=== PATIENT | female | born 2000 | race Caucasian/White ===

== ENCOUNTER 2022-05-13 21:34 | Emergency (ER) | payer MEDICAID ==
[2022-05-13] VITALS (8 sets, daily range): BP systolic 102–134; BP diastolic 35–83
[~2022-05-13] VITALS: Ht 139.7 cm; Wt 64.0 kg
[~2022-05-13 21:34] MED LIST: AMOXICILLI400 MG/5 M PO; AUGMENTIN400 MG OR; NO HOME MEDS; PEPTO BISMOL30 ML OR; TRIAMIN19 OR
[2022-05-13 22:23] LABS: HEMATOCRIT 36.5 % (37.0-47.0); HEMOGLOBIN 11.4 g/dl (12.0-16.0); IMMATURE GRANULOCYTES 0.1 % (0.0-5.0); MEAN CELL VOLUME 71.7 fL CALC (80.0-100.0); MEAN CORPUSCULAR HGB 22.4 pG CALC (26.0-32.0); MEAN CORPUSCULAR HGB CONC 31.2 g/dL CAL (32.0-36.0); RED BLOOD COUNT 5.09 mill/uL (4.20-5.60); RED CELL DISTRI WIDTH 14.8 % (11.5-15.5)
[2022-05-13 22:40] LABS: ALBUMIN 4.5 g/dL (3.2-5.0); ALKALINE PHOSPHATASE 89 u/l (38-126); ANION GAP 15 (6-22 (CALC)); BILIRUBIN, TOTAL 0.2 mg/dL (0.0-1.4); BUN 9 mg/dL (7-17); BUN/CREATININE RATIO 21 (12-20 (CALC)); CARBON DIOXIDE 26 mmol/l (22-30); CHLORIDE 101 mmol/l (95-108); CREATININE 0.5 mg/dL (0.5-1.0); GFR FOR AFR.AMER. > 60 ML/MIN (>=60 (CALC)); GFR OTHER RACES > 60 ML/MIN (>=60 (CALC)); POTASSIUM 3.7 mmol/l (3.5-5.1); SGOT/AST 26 u/l (14-36); SODIUM 139 mmol/l (137-146); TOTAL PROTEIN 8.1 g/dL (6.3-8.2)
[2022-05-13 23:08] LABS: URINE BILIRUBIN - DIPSTICK NEGATIVE (NEGATIVE); URINE BLOOD DIPSTICK NEGATIVE (NEGATIVE); URINE COLOR YELLOW; URINE GLUCOSE - DIPSTICK NEGATIVE (NEGATIVE); URINE KETONE NEGATIVE (NEGATIVE); URINE LEUK ESTERASE NEGATIVE (NEGATIVE); URINE NITRITE - DIPSTICK NEGATIVE (Negative); URINE PROTEIN - DIPSTICK NEGATIVE (NEG-TRACE); URINE SPECIFIC GRAVITY >=1.030; URINE UROBILINOGEN - DIPSTICK 0.2 E.U./dL (0.2)
[2022-05-14] VITALS (7 sets, daily range): BP systolic 103–119; BP diastolic 49–64
[2022-05-14] MEDS ORDERED: IBUPROFEN600 MG PO (01:04)
[2022-05-14] MEDS ORDERED: BACLOFEN20 MG PO (01:04)
== END 2022-05-14 01:30 | disposition home or self-care (01) ==
LOC: ED 21:34
PROVIDERS: Emergency Medicine
DX: R07.89 Other chest pain (principal); R10.9 Unspecified abdominal pain; J31.2 Chronic pharyngitis

== ENCOUNTER 2023-08-17 12:53 | Emergency (ER) | payer OTHER ==
[~2023-08-17] VITALS: Ht 139.7 cm; Wt 91.2 kg
[~2023-08-17 12:53] MED LIST changes: +AMOXICILLIN500 MG PO; +BACLOFEN20 MG PO; +IBUPROFEN600 MG PO
[2023-08-17 13:12] VITALS: BP 134/74
[2023-08-17 13:31] VITALS: BP 140/61
[2023-08-17 13:46] VITALS: BP 126/64
[2023-08-17 14:01] VITALS: BP 130/75
[2023-08-17] MEDS ORDERED: MOTRIN800 MG PO (16:06)
[2023-08-17 16:14] VITALS: BP 130/75
== END 2023-08-17 16:15 | disposition home or self-care (01) | DRG 563 ==
LOC: ED 12:53
DX: S43.401A Unspecified sprain of right shoulder joint, initial encounter (principal); V43.62XA Car passenger injured in collision with other type car in traffic accident, initial encounter; S63.501A Unspecified sprain of right wrist, initial encounter